=== PATIENT | female | born 1965 | race Caucasian/White ===

== ENCOUNTER 2017-08-29 14:25 | Outpatient (CLI) | payer BC | END 2017-08-29 14:26 | disposition home or self-care (01) | LOC: BICMAMMO 14:25 | PROVIDERS: ATTEND Internal Medicine | DX: Z12.31 Encounter for screening mammogram for malignant neoplasm of breast (principal); Z13.820 Encounter for screening for osteoporosis; Z80.3 Family history of malignant neoplasm of breast; M85.88 Other specified disorders of bone density and structure, other site; Z78.0 Asymptomatic menopausal state | CPT/HCPCS: 77063; 77067; 77080 ==

== ENCOUNTER 2017-09-05 13:41 | Outpatient (CLI) | payer BC | END 2017-09-05 13:42 | disposition home or self-care (01) | LOC: BICMAMMO 13:41 | PROVIDERS: ATTEND Internal Medicine | DX: R92.8 Other abnormal and inconclusive findings on diagnostic imaging of breast (principal); Z80.3 Family history of malignant neoplasm of breast | CPT/HCPCS: G0279 ==

== ENCOUNTER 2018-03-03 14:59 | Outpatient (CLI) | payer BC ==
--- NOTE | 2018-03-03 16:26 | ULT ---
LEFT BREAST ULTRASOUND: 03/03/18 HISTORY: Six month followup ultrasound. COMPARISON: 09/05/17 exam. Real time imaging of the left breast was again performed in the retroareolar region of the left breas t. Once again there is areas of echogenicity which are similar to surrounding breast tissue and proba mazin represent islands of breast tissue. One of these areas is at the 9 o'clock position 2 cm from the nipple measuring in the 1 cm range, stable. There is a more oblong shape 7 x 17 mm area within the r etroareolar region of the left breast, also stable. IMPRESSION: BIRADS 2: Benign Finding(s) Routine annual screening mammography (for women over age 40). POS: OFF
== END 2018-03-03 15:00 | disposition home or self-care (01) ==
LOC: BICULT 14:59
PROVIDERS: ATTEND Internal Medicine
DX: R92.8 Other abnormal and inconclusive findings on diagnostic imaging of breast (principal)

== ENCOUNTER 2018-04-22 16:46 | Emergency (ER) | payer BC ==
[2018-04-22] MEDS ORDERED: diphenhydrAMINE 50 MG/ML VIAL ONE (17:14)
[2018-04-22] MEDS ORDERED: Promethazine HCl 25 MG/ML VIAL ONE (17:14)
[2018-04-22 19:31] LABS: #Basophils 0.1 thou/uL (0.0-0.2); #Lymphocytes 1.1 thou/uL (1.20-3.40); #Monocytes 0.4 thou/uL (0.11-0.59); #Neutrophils 7.9 thou/uL (1.40-6.50); %Basophils 0.6 % (0.0-1.0); %Eosinophils 0.1 % (0.0-10.0); %Lymphocytes 11.9 % (21.0-51.0); %Monocytes 4.3 % (0.0-10.0); %Neutrophils 83.1 % (42.0-75.0); Hemoglobin 12.8 g/dL (12.0-16.0); Mean Corpuscular HGB CONC 32.7 g/dL (32.0-36.0); Mean Corpuscular Hemoglobin 30.9 pg (27.0-31.0); Mean Corpuscular Volume 94.4 fL (78.0-98.0); Mean Platelet Volume 7.2 fL (7.4-10.4); Platelet Count 282 thou/uL (130-400); RBC Distribution Width 11.7 % (11.5-14.5); Red Blood Cell (RBC) Count 4.15 mill/uL (4.20-5.40); White Blood Cell (WBC) Count 9.5 thou/uL (4.8-10.8)
[2018-04-22 19:50] LABS: ALT (SGPT) 12 U/L (8-55); AST (SGOT) 17 U/L (5-34); Albumin 4.5 g/dL (3.5-5.0); Alkaline Phosphatase 41 U/L (40-150); Anion Gap 13 mmol/L (10-20); BUN (Urea Nitrogen) 12 mg/dL (9.8-20.1); Bilirubin, Total 0.5 mg/dL (0.2-1.2); Calc. Creatinine Clearance 0 mL/min (70-130); Calcium 9.4 mg/dL (7.8-10.44); Carbon Dioxide 25 mmol/L (22-29); Chloride 104 mmol/L (98-107); Estimated GFR-MDRD 76; Globulin 2.8 g/dL (2.4-3.5); Glucose 103 mg/dL (70-105); Potassium 4.1 mmol/L (3.5-5.1); Protein, Total 7.3 g/dL (6.0-8.3); Sodium 138 mmol/L (136-145)
--- NOTE | 2018-04-25 18:45 | EKG ---
Test Reason : NEAR SYNCOPE Blood Pressure : / mmHG Vent. Rate : 074 BPM Atrial Rate : 074 BPM P-R Int : 116 ms QRS Dur : 078 ms QT Int : 436 ms P-R-T Axes : 061 065 029 degrees QTc Int : 483 ms Sinus rhythm with Premature supraventricular complexes Prolonged QT Abnormal ECG Confirmed by VIVIAN PHILLIPS ([id number]), city editor CYRIL ROCA ([id number] on 04/25/2018 6:44:43 PM Referred By: Confirmed By:VIVIAN PHILLIPS
== END 2018-04-22 20:12 | disposition home or self-care (01) ==
LOC: ERS 16:46
DX: R55 Syncope and collapse (principal); R11.2 Nausea with vomiting, unspecified; E03.9 Hypothyroidism, unspecified; Z79.899 Other long term (current) drug therapy
CPT/HCPCS: 36415; 80053; 85025; 93005; 96361; 96374; 96375; J1200; J2550

== ENCOUNTER 2018-09-28 13:58 | Outpatient (CLI) | payer BC ==
--- NOTE | 2018-09-28 14:37 | MMO ---
Bilateral MAMMO Bilat Screen [facility]. CLINICAL HISTORY: Patient is 53 years old and is seen for screening. The patient has the following family history of breast cancer: mother, at age 70, and cervical cancer. The patient has no personal history of cancer. VIEWS: The views performed were: bilateral craniocaudal with tomosynthesis; bilateral mediolateral oblique with tomosynthesis; and bilateral exaggerated craniocaudal. FILMS COMPARED: The present examination has been compared to prior imaging studies performed at [facility] on 05/10/2015, 07/15/2016, 08/29/2017 and 09/05/2017. MAMMOGRAM FINDINGS: The breasts are heterogeneously dense, which could obscure a lesion on mammography. Benign calcifications are noted bilaterally. There are no suspicious masses, suspicious calcifications, or new areas of architectural distortion. IMPRESSION: THERE IS NO MAMMOGRAPHIC EVIDENCE OF MALIGNANCY. A ROUTINE FOLLOW-UP MAMMOGRAM IN 1 YEAR IS RECOMMENDED. THE RESULTS OF THIS EXAM WERE SENT TO THE PATIENT. ACR BI-RADS Category 2 - Benign finding MAMMOGRAPHY NOTE: 1. A negative mammogram report should not delay a biopsy if a dominant of clinically suspicious mass is present. 2. Approximately 10% to 15% of breast cancers are not detected by mammography. 3. Adenosis and dense breasts may obscure an underlying neoplasm. Reported by: NATALI GUEVARA MD Electonically Signed: [id number]
--- NOTE | 2018-09-28 16:04 | BD ---
DEXA BONE DENSITY STUDY: HISTORY: Osteoporosis screening. COMPARISON: None available. FINDINGS: Lumbar Spine: BMD (g/cm2) L1 0.739 T-Score: -2.3, -1.3 L2 0.814 T-Score: -1.9, -0.9 L3 0.856 T-Score: -2.1, -1.0 L4 0.842 T-Score: -2.0, -0.9 L1-L4 0.816 T-Score: -2.1, -1.0 WHO classification: Osteopenia. Femoral Neck: 0.608 T-Score: -2.2, -1.1 Total Femur: 0.795 T-Score: -1.2, -0.5 WHO classification: Osteopenia. TEN-YEAR FRACTURE RISK: Major osteoporotic fracture 7.3%, hip fracture 1.1%. Impression: Osteopenia with elevated fracture risk as above. POS: HOME
== END 2018-09-28 13:59 | disposition home or self-care (01) ==
LOC: BICMAMMO 13:58
PROVIDERS: ATTEND Internal Medicine
DX: Z12.31 Encounter for screening mammogram for malignant neoplasm of breast (principal); M85.89 Other specified disorders of bone density and structure, multiple sites; Z80.3 Family history of malignant neoplasm of breast; Z80.49 Family history of malignant neoplasm of other genital organs
CPT/HCPCS: 77063; 77067; 77080

== ENCOUNTER 2020-11-06 09:04 | Outpatient (CLI) | payer BC | END 2020-11-06 09:05 | disposition home or self-care (01) | LOC: BICMAMMO 09:04 | PROVIDERS: ATTEND Internal Medicine | DX: Z12.31 Encounter for screening mammogram for malignant neoplasm of breast (principal); Z80.3 Family history of malignant neoplasm of breast; Z80.49 Family history of malignant neoplasm of other genital organs | CPT/HCPCS: 77063; 77067 ==